=== PATIENT | female | born 1995 | race Caucasian/White ===

== ENCOUNTER 2018-01-23 23:24 | Emergency (ER) | payer OTHER ==
[~2018-01-23] VITALS: Ht 157.5 cm; Wt 49.0 kg
[2018-01-23] MEDS ORDERED: RESTORIL30 M1 (23:57)
[2018-01-23] MEDS ORDERED: WELLBUTRIN SR150 MG (23:57)
[2018-01-23] MEDS ORDERED: LEXAPRO20 MG (23:58)
== END 2018-01-24 21:51 | disposition home or self-care (01) ==
LOC: ER 23:24
DX: R55 Syncope and collapse (principal); T43.295A Adverse effect of other antidepressants, initial encounter

== ENCOUNTER → 2018-03-23 12:07 | Outpatient (CLI) | payer OTHER ==
[~2018-03-23 12:07] MED LIST: LEXAPRO20 MG; RESTORIL30 M1; WELLBUTRIN SR150 MG
== END | disposition home or self-care (01) ==
LOC: LAB 12:07
DX: I10 Essential (primary) hypertension (principal); E03.8 Other specified hypothyroidism; D64.89 Other specified anemias; N39.0 Urinary tract infection, site not specified; E78.4 Other hyperlipidemia; J21.0 Acute bronchiolitis due to respiratory syncytial virus

== ENCOUNTER 2019-03-09 13:05 | Emergency (ER) | payer OTHER ==
[~2019-03-09] VITALS: Ht 157.5 cm; Wt 49.9 kg
[2019-03-09] MEDS ORDERED: PAROXETINE HCL30 MG (13:19)
[2019-03-09] MEDS ORDERED: AMBIEN5 MG (13:19)
[2019-03-09] MEDS ORDERED: CLORAZEPATE DI7.5 MG (13:19)
== END 2019-03-09 20:42 | disposition home or self-care (01) ==
LOC: ER 13:05
DX: K59.09 Other constipation (principal); K60.2 Anal fissure, unspecified